=== PATIENT | male | born 1970 | race Caucasian/White ===

== ENCOUNTER 2023-10-13 03:47 | Emergency (ER) | payer OTHER, SELFPAY ==
[2023-10-13 03:56] VITALS: BP 147/107
[2023-10-13 04:09] VITALS: BP 126/86
[2023-10-13 04:33] LABS: % Basophils 0.7 % (0-2); % Eosinophils 7.8 % (0-6); % Immature Granulocytes 0.4 % (0-0.5); % Lymphocytes 25.5 % (20.5-51.1); % Monocytes 7.7 % (1.7-9.3); % Neutrophils 57.9 % (42.2-75.2); Absolute Basophils 0.1 10^3/uL (0-0.2); Absolute Eosinophils 0.7 10^3/uL (0-0.7); Absolute Lymphocytes 2.4 10^3/uL (1.2-3.4); Absolute Monocytes 0.7 10^3/uL (0.1-0.6); Absolute Neutrophils 5.4 10^3/uL (1.4-6.5); Hematocrit 44.5 % (39.0-52.0); Hemoglobin 15.3 g/dL (13.0-18.0); Mean Corp Hgb Conc. 34.4 g/dL (33.0-37.0); Mean Corpuscular Hgb 30.2 pg (27.0-31.0); Mean Corpuscular Volume 87.8 fL (80.0-94.0); Mean Platelet Volume 10.7 fL (7.4-10.4); Nucleated Red Blood Cells % 0 % (-); Platelet Count 205 10^3/uL (130-400); Red Blood Cell Count 5.07 10^6/uL (4.70-6.10); Red Cell Dist. Width 12.3 % (11.5-14.5); White Blood Cell Count 9.4 10^3/uL (4.8-10.8)
--- NOTE | 2023-10-13 04:46 | ED.GENMED ---
History of Present Illness
General
Chief Complaint: Chest Pain
Source: patient
Exam Limitations: none
Time Seen by Provider: 10/13/23 04:27
Travel History
Have you had any contact with someone who has COVID-19?: No
Do you have any symptoms of coronavirus? Fever > 100 degrees, chills, cough, shortness of breath, sore throat, loss of taste or smell, muscle aches, or headache?: No
History of Present Illness
History of Present Illness:
See MDM
Past History
Past History
ED Past Medical History: HTN, Hypercholesterolemia and Other (pinched nerve)
ED Past Surgical History: Orthopedic (Chronic neck pain)
Social History
Tobacco: Non-smoker
Alcohol: None
Drug: None
Personal:
Living: with family
Employment: Employed
Phy Exam
Physical Exam
Physical Exam:
See MDM
Scores
Heart Score for Chest Pain Patients
STEMI patient?: No
History: Slightly or Non-Suspicious
ECG: Normal
Age: >45 - <65 years
Risk Factors: 1 or 2 Risk Factors
Troponin: </= Normal Limit
Heart Score for Chest Pain Patients: 2
Heart Score Risk: 2.5% MACE over next 6 weeks
Course
Orders/Labs/Results
Orders:
Orders
10/13/23 03:49
Electrocardiogram (*1) Urgent
Reason for Study: Chest Pain
Cardiac Monitoring- Treatment ONCE
EKG- Treatment ONCE
IV Insert/Care/Rem.- Treatment PRN
O2 Therapy [RESP] Urgent
Titrate/Wean O2 to maintain O2 sat greater than (%): 90
Special Instructions: Maintain sats >/=90%
Pulse Ox/spot Check [RESP] Urgent
Quantity: 1
Special Instructions: ON ROOM AIR
10/13/23 04:18
Complete Blood Count/With Diff Urgent
Comprehensive Metabolic Panel Urgent
Troponin I Urgent
10/13/23 04:45
Amlodipine [Norvasc] 5 mg PO ONCE ONE
Abnormal Lab Results
10/13/23
04:18
MPV 10.7 H fL
(7.4-10.4)
Absolute Monos (auto) 0.7 H 10^3/uL
(0.1-0.6)
Eosinophils % 7.8 H %
(0-6)
Total Bilirubin 1.7 H mg/dl
(0.2-1.3)
10/13/23 04:18
10/13/23 04:18
Vital Signs
Initial and Last Documented VS:
Initial Vital Signs
Temp Pulse Resp BP Pulse Ox
97.9 F 70 20 147/107 97
10/13/23 03:56 10/13/23 03:56 10/13/23 03:56 10/13/23 03:56 10/13/23 03:56
Last Documented Vital Signs
Temp Pulse Resp BP Pulse Ox
97.9 F 61 15 132/91 96
10/13/23 03:56 10/13/23 05:15 10/13/23 05:15 10/13/23 05:00 10/13/23 05:15
MDM/Problems Addressed
Differential Diagnosis Includes:
HPI and MDM Narrative:
52-year-old male presenting with intermittent chest discomfort. This has been ongoing for the past several weeks. Patient got worried because he is now developing jaw pain. Patient does acknowledge that some of this could be anxiety related.
Given his ongoing symptoms, his set up an appointment for him with cardiology Dr. Campbell next Sunday. Patient also concerned about intermittently elevated blood pressures. He is currently on metoprolol daily and does not feel like that is
the appropriate medicine. He acknowledges that his chest pain symptoms are not related to exertion
His screening EKG is normal. Given duration of symptoms, will obtain troponin. Will give trial of amlodipine and lieu of metoprolol
Physical exam
General: Well appearing and non-toxic
HEENT: protecting airway
Neck: appears supple
CV: No evidence of cyanosis. Regular rate and rhythm
Resp: No accessory muscle use. Lungs clear
Abd: Non-distended
Extremities: No deformities. No leg edema
Neuro: alert
Psych: Normal affect
Skin: Intact
Problems Addressed including Acute and Chronic Conditions affecting care:
1. Intermittent chest pain
Acuity: acute
Prognosis: stable
Details: Given no exertional component and a normal EKG, doubt ACS. Will obtain troponin given duration of symptoms
2. Hypertension
Acuity: acute
Prognosis: stable
Details: Patient is not tolerating metoprolol. Will switch to amlodipine
Updates
Troponin negative. On reassessment, patient feels comfortable going home
Differential Diagnosis (but not limited to): Noncardiac chest pain, anxiety, ACS
Testing considered: D-dimer but symptoms are intermittent
Drug therapy (if applicable): OTC meds, please see d/c instruction regarding Rx drugs
Amount and/or Complexity of Data Reviewed
Clinical info obtained from: Patient
External data reviewed: N/A
Labs I independently reviewed (but not limited to): Troponin normal
Radiology: N/A
Pulse Ox: not hypoxic
EKG independently reviewed: Sinus rhythm, normal axis, no STEMI
Doubler Helper: N/A
Critical Care: N/A
Risk of Complication:
Social Determinants of health: Good social support
Discussed with other providers: N/A
Escalation of Care includes Admit/Obs: After being observed in the Emergency Department, pt stable for discharge.
Occasional wrong word or 'sound a like' substitutions may have occurred due to the inherent limitations of voice recognition software. Read the chart carefully and recognize, using context, where substitutions have occurred.
*Critical Care Note
Total Time (30-74mins, 75-104mins- exclusive of procedures): Not Applicable
ED Attending Note
-
Portions of this chart may have been created with voice recognition software.� Occasional wrong word or��sound alike� substitutions may have occurred due to the inherent limitations of voice recognition software.
Discharge Plan
Departure
Patient Disposition: Home (Routine Discharge)
Date of Disposition: 10/13/23
Time of Disposition: 06:23
Patient with high blood pressure during this ER visit?: No
Discharge Problem:
Chest pain
Instructions: Chest Pain (DC)
Prescriptions:
New
amlodipine 5 mg tablet
5 mg PO DAILY Qty: 14 0RF
No Action
metoprolol succinate 25 mg Tablet Extended Release 24 Hr
25 mg PO DAILY
acetaminophen 325 MG tablet
1,000 mg PO BID
atorvastatin 40 MG tablet
40 mg PO QPM Qty: 90 0RF
cetirizine 10 MG tablet
10 mg PO DAILY Qty: 90 0RF
ascorbic acid (vitamin C) 250 MG tablet
250 mg PO DAILY Qty: 90 0RF
cholecalciferol (vitamin D3) 1,000 UNITS tablet
1,000 units PO DAILY Qty: 90 0RF
Referrals:
Danica Vance PA-C [Family Provider] -
Activity Restrictions/Additional Instructions:
Please return for any worsening symptoms.
You may return at any time if you have further concerns.
Please keep your cardiology appointment.
Thank you for choosing [facility].
Interventions
Interventions:
*General Assessment Last Done: 10/13/23 03:56
*Neglect/Abuse Screening Last Done: 10/13/23 03:56
ED- Fall Risk Assessment Last Done: 10/13/23 03:56
*ED COVID-19 Vaccine History Last Done: 10/13/23 03:56
ED- Cardiac Assessment Last Done: 10/13/23 04:21
[2023-10-13 04:53] LABS: Troponin I < 0.012 ng/ml
[2023-10-13 04:57] LABS: ALT (SGPT) 23 U/L (0-50); AST (SGOT) 25 U/L (17-59); Albumin 3.9 g/dl (3.5-5.0); Alkaline Phosphatase 58 U/L (38-126); Blood Urea Nitrogen 15 mg/dl (9-20); Calcium 9.5 mg/dl (8.4-10.2); Carbon Dioxide 28 mmol/L (22-30); Chloride 104 mmol/L (98-107); Estimated Creatinine Clearance > 125 ml/min; Glucose 98 mg/dl (70-99); Potassium 4.6 mmol/L (3.5-5.1); Sodium 140 mmol/L (135-145); Total Bilirubin 1.7 mg/dl (0.2-1.3); Total Protein 6.5 g/dl (6.3-8.2); eGFR > 60.00
[2023-10-13] MEDS: NORVASC 5 MG PO (04:57)
[2023-10-13 05:00] VITALS: BP 132/91
[2023-10-13 06:00] VITALS: BP 134/96
== END 2023-10-13 06:36 | disposition home or self-care (01) ==
LOC: EMR 03:47
PROVIDERS: EMERGENCY PHYSICIAN Student in an Organized Health Care Education/Training Program; FAMILY PHYSICIAN Physician Assistant Medical
DX: R07.89 Other chest pain (principal); R68.84 Jaw pain; I10 Essential (primary) hypertension; E78.00 Pure hypercholesterolemia, unspecified; M54.2 Cervicalgia; G89.29 Other chronic pain; Z79.899 Other long term (current) drug therapy; Z88.8 Allergy status to other drugs, medicaments and biological substances
CPT/HCPCS: 99284; 94760; 80053; 84484; 85025; 93005

== ENCOUNTER → 2023-11-09 07:44 | Outpatient (REF) | payer OTHER, SELFPAY ==
[2023-11-09 08:22] LABS: Urine Albumin Negative (Neg - Trace); Urine Bilirubin Negative (Negative); Urine Character Clear (Clear); Urine Color Yellow; Urine Glucose Negative (Negative); Urine Ketone Negative (Negative); Urine Leukocyte Negative (Negative); Urine Nitrite Negative (Negative); Urine Occult Blood Negative (Negative); Urine Urobilinogen Negative (Neg - 1+)
[2023-11-09 08:44] LABS: ALT (SGPT) 32 U/L (0-50); AST (SGOT) 30 U/L (17-59); Albumin 4.6 g/dl (3.5-5.0); Alkaline Phosphatase 69 U/L (38-126); Blood Urea Nitrogen 11 mg/dl (9-20); Calcium 9.7 mg/dl (8.4-10.2); Carbon Dioxide 31 mmol/L (22-30); Chloride 102 mmol/L (98-107); Direct Bilirubin 0.1 mg/dl (0.0-0.4); Glucose 91 mg/dl (70-99); HDL Cholesterol 61 mg/dl; LDL Cholesterol, Calculated 43 mg/dl; Potassium 4.8 mmol/L (3.5-5.1); Sodium 138 mmol/L (135-145); Total Bilirubin 1.4 mg/dl (0.2-1.3); Total Cholesterol 120 mg/dl (50-199); Total Protein 6.8 g/dl (6.3-8.2); Triglyceride 84 mg/dl (10-149); Very Low Density Lipoprotein 16 mg/dl (0-30); eGFR > 60.00
== END ==
LOC: REG 07:44
PROVIDERS: ATTENDING PHYSICIAN Physician Assistant Medical
DX: N40.1 Benign prostatic hyperplasia with lower urinary tract symptoms (principal); R47.02 Dysphasia; E78.00 Pure hypercholesterolemia, unspecified
CPT/HCPCS: 36415; 80053; 80061; 81003; 82248

== ENCOUNTER → 2023-11-28 10:05 | Outpatient (REF) | payer OTHER, SELFPAY | LOC: DHCBC MAIN 10:05 | PROVIDERS: ATTENDING PHYSICIAN Internal Medicine Cardiovascular Disease; FAMILY PHYSICIAN Physician Assistant Medical | DX: R07.2 Precordial pain (principal) | CPT/HCPCS: 93306 ==

== ENCOUNTER → 2023-12-03 08:12 | Outpatient (REF) | payer OTHER, SELFPAY | LOC: RCS 08:12 | PROVIDERS: ATTENDING PHYSICIAN Internal Medicine Cardiovascular Disease; FAMILY PHYSICIAN Physician Assistant Medical | DX: R07.2 Precordial pain (principal) | CPT/HCPCS: 93017 ==

== ENCOUNTER → 2024-01-09 08:58 | Outpatient (REF) | payer OTHER, SELFPAY | LOC: RCS 08:58 | PROVIDERS: ATTENDING PHYSICIAN Internal Medicine Cardiovascular Disease; FAMILY PHYSICIAN Physician Assistant Medical | DX: R07.89 Other chest pain (principal); R94.39 Abnormal result of other cardiovascular function study | CPT/HCPCS: 93017; 93350; Q9950 ==

== ENCOUNTER → 2024-03-28 07:28 | Outpatient (REF) | payer OTHER, SELFPAY ==
[2024-03-28 08:44] LABS: % Basophils 0.7 % (0-2); % Eosinophils 5.5 % (0-6); % Immature Granulocytes 0.4 % (0-0.5); % Lymphocytes 21.4 % (20.5-51.1); % Monocytes 9.2 % (1.7-9.3); % Neutrophils 62.8 % (42.2-75.2); Absolute Basophils 0.1 10^3/uL (0-0.2); Absolute Eosinophils 0.5 10^3/uL (0-0.7); Absolute Lymphocytes 1.8 10^3/uL (1.2-3.4); Absolute Monocytes 0.8 10^3/uL (0.1-0.6); Absolute Neutrophils 5.3 10^3/uL (1.4-6.5); Hematocrit 48.3 % (39.0-52.0); Hemoglobin 16.4 g/dL (13.0-18.0); Mean Corpuscular Hgb 30.4 pg (27.0-31.0); Mean Corpuscular Volume 89.6 fL (80.0-94.0); Mean Platelet Volume 10.7 fL (7.4-10.4); Nucleated Red Blood Cells % 0 % (-); Platelet Count 251 10^3/uL (130-400); Red Blood Cell Count 5.39 10^6/uL (4.70-6.10); White Blood Cell Count 8.4 10^3/uL (4.8-10.8)
[2024-03-28 09:14] LABS: ALT (SGPT) 20 U/L (0-50); AST (SGOT) 26 U/L (17-59); Albumin 4.8 g/dl (3.5-5.0); Alkaline Phosphatase 72 U/L (38-126); Blood Urea Nitrogen 14 mg/dl (9-20); Calcium 10.4 mg/dl (8.4-10.2); Carbon Dioxide 31 mmol/L (22-30); Chloride 103 mmol/L (98-107); Glucose 94 mg/dl (70-99); Iron 167 ug/dl (49-181); Potassium 5.1 mmol/L (3.5-5.1); Sodium 140 mmol/L (135-145); eGFR > 60.00
[2024-03-28 09:23] LABS: Vitamin D, 25-OH*** 45.1 ng/mL (30-80)
[2024-03-28 09:37] LABS: TSH Reflex To Free T4 1.26 uIU/ml (0.47-4.68)
[2024-03-28 09:56] LABS: Vitamin B12 357 pg/ml (239-931)
== END ==
LOC: REG 07:28
PROVIDERS: ATTENDING PHYSICIAN Physician Assistant Medical
DX: R53.83 Other fatigue (principal)
CPT/HCPCS: 36415; 80053; 82306; 82607; 83540; 84443; 85025

== ENCOUNTER → 2024-05-29 06:29 | Day surgery (SDC) | payer OTHER, SELFPAY | LOC: GI 06:29 | PROVIDERS: ATTENDING PHYSICIAN Internal Medicine Gastroenterology | DX: Z12.11 Encounter for screening for malignant neoplasm of colon (principal); K64.8 Other hemorrhoids; D12.5 Benign neoplasm of sigmoid colon; K63.5 Polyp of colon; D12.8 Benign neoplasm of rectum; R13.10 Dysphagia, unspecified; K22.89 Other specified disease of esophagus; K20.0 Eosinophilic esophagitis; K29.50 Unspecified chronic gastritis without bleeding | CPT/HCPCS: 45385; 43239; 88305; 88342 ==

== ENCOUNTER → 2025-01-30 15:25 | Outpatient (REF) | payer OTHER, SELFPAY | LOC: RAD 15:25 | PROVIDERS: ATTENDING PHYSICIAN Internal Medicine | DX: M79.604 Pain in right leg (principal); M79.89 Other specified soft tissue disorders; R73.03 Prediabetes | CPT/HCPCS: 93971 ==

== ENCOUNTER → 2025-02-02 15:55 | Outpatient (REF) | payer OTHER, SELFPAY ==
[2025-02-02 16:53] LABS: % Basophils 0.7 % (0-2); % Eosinophils 3.9 % (0-6); % Immature Granulocytes 0.5 % (0-0.5); % Lymphocytes 21.4 % (20.5-51.1); % Monocytes 8.7 % (1.7-9.3); % Neutrophils 64.8 % (42.2-75.2); Absolute Basophils 0.1 10^3/uL (0-0.2); Absolute Eosinophils 0.3 10^3/uL (0-0.7); Absolute Lymphocytes 1.8 10^3/uL (1.2-3.4); Absolute Monocytes 0.7 10^3/uL (0.1-0.6); Absolute Neutrophils 5.6 10^3/uL (1.4-6.5); Hematocrit 45.3 % (39.0-52.0); Hemoglobin 14.8 g/dL (13.0-18.0); Mean Corp Hgb Conc. 32.7 g/dL (33.0-37.0); Mean Corpuscular Hgb 29.4 pg (27.0-31.0); Mean Corpuscular Volume 90.1 fL (80.0-94.0); Mean Platelet Volume 10.7 fL (7.4-10.4); Nucleated Red Blood Cells % 0 % (-); Platelet Count 249 10^3/uL (130-400); Red Blood Cell Count 5.03 10^6/uL (4.70-6.10); Red Cell Dist. Width 12.2 % (11.5-14.5); White Blood Cell Count 8.6 10^3/uL (4.8-10.8)
[2025-02-02 17:06] LABS: Erythrocyte Sed Rate 8 mm/hour (0-20)
[2025-02-02 17:27] LABS: ALT (SGPT) 18 U/L (0-50); AST (SGOT) 21 U/L (17-59); Albumin 4.8 g/dl (3.5-5.0); Alkaline Phosphatase 85 U/L (38-126); Blood Urea Nitrogen 14 mg/dl (9-20); Calcium 10.2 mg/dl (8.4-10.2); Carbon Dioxide 29 mmol/L (22-30); Chloride 106 mmol/L (98-107); Glucose 92 mg/dl (70-99); Potassium 5.3 mmol/L (3.5-5.1); Sodium 142 mmol/L (135-145); Total Bilirubin 0.9 mg/dl (0.2-1.3); Total Protein 7.2 g/dl (6.3-8.2); eGFR > 60.00
[2025-02-05 08:50] LABS: ANA, IgG Reflex to HEp-2 None Detected (None Detected)
== END ==
LOC: REG 15:55
PROVIDERS: ATTENDING PHYSICIAN Internal Medicine
DX: M19.90 Unspecified osteoarthritis, unspecified site (principal)
CPT/HCPCS: 36415; 80053; 85025; 85652; 86038; 86430; 86618

== ENCOUNTER → 2025-04-10 07:29 | Outpatient (REF) | payer OTHER, SELFPAY ==
[2025-04-10 08:34] LABS: Urine Character Clear (Clear)
[2025-04-10 08:45] LABS: Urine Red Blood Cell 0-2 /HPF (0-2); Urine Squamous Cell 0-2 /LPF (Few); Urine White Cell 0-2 /HPF (0-5)
[2025-04-10 08:59] LABS: Hematocrit 46.3 % (39.0-52.0); Hemoglobin 15.3 g/dL (13.0-18.0); Mean Corp Hgb Conc. 33.0 g/dL (33.0-37.0); Mean Corpuscular Volume 87.4 fL (80.0-94.0); Nucleated Red Blood Cells % 0 % (-); Platelet Count 223 10^3/uL (130-400); Red Cell Dist. Width 12.2 % (11.5-14.5)
[2025-04-10 09:42] LABS: ALT (SGPT) 23 U/L (0-50); AST (SGOT) 20 U/L (17-59); Albumin 4.7 g/dl (3.5-5.0); Alkaline Phosphatase 79 U/L (38-126); Blood Urea Nitrogen 16 mg/dl (9-20); Calcium 9.9 mg/dl (8.4-10.2); Carbon Dioxide 24 mmol/L (22-30); Chloride 105 mmol/L (98-107); Glucose 91 mg/dl (70-99); HDL Cholesterol 48 mg/dl; LDL Cholesterol, Calculated 127 mg/dl; Potassium 4.5 mmol/L (3.5-5.1); Sodium 138 mmol/L (135-145); Total Protein 7.0 g/dl (6.3-8.2); Very Low Density Lipoprotein 25 mg/dl (0-30); eGFR > 60.00
[2025-04-10 10:21] LABS: PSA, Total - Screen 1.88 ng/ml (0.0-4.0)
== END ==
LOC: REG 07:29
PROVIDERS: ATTENDING PHYSICIAN Physician Assistant Medical
DX: M54.2 Cervicalgia (principal); R10.9 Unspecified abdominal pain; R22.1 Localized swelling, mass and lump, neck; E78.00 Pure hypercholesterolemia, unspecified; N40.1 Benign prostatic hyperplasia with lower urinary tract symptoms
CPT/HCPCS: 36415; 80053; 80061; 81003; 81015; 84443; 85025; G0103

== ENCOUNTER → 2025-04-14 15:11 | Outpatient (REF) | payer OTHER, SELFPAY | LOC: HWRAD 15:11 | PROVIDERS: ATTENDING PHYSICIAN Physician Assistant Medical | DX: R22.1 Localized swelling, mass and lump, neck (principal) | CPT/HCPCS: 76536 ==

== ENCOUNTER → 2025-04-27 14:13 | Outpatient (REF) | payer OTHER, SELFPAY | LOC: RAD 14:13 | PROVIDERS: ATTENDING PHYSICIAN Physician Assistant Medical | DX: R22.1 Localized swelling, mass and lump, neck (principal) | CPT/HCPCS: 70491; Q9967 ==